=== PATIENT | female | born 1955 | race Caucasian/White ===

== ENCOUNTER 2018-06-19 09:58 | Outpatient (CLI) | payer BC, MEDICAID | END 2018-06-19 23:59 | disposition home or self-care (01) | LOC: RAD 09:58 | PROVIDERS: ATTEND Nurse Practitioner Family | DX: K80.20 Calculus of gallbladder without cholecystitis without obstruction (principal) | CPT/HCPCS: 76700 ==

== ENCOUNTER 2019-03-03 11:35 | Emergency (ER) | payer MEDICAID, OTHER ==
[~2019-03-03] VITALS: Ht 160 cm; Wt 86.4 kg
[~2019-03-03 11:35] MED LIST: ESOM40CA PO
[2019-03-03 12:24] LABS: BASOPHILS % (AUTO) 0.5 % (0-1); EOSINOPHILS # (AUTO) 0.1 X10'3 (0-0.9); EOSINOPHILS % (AUTO) 2.7 % (0-6); HEMOGLOBIN 14.2 g/dl (12.0-16.0); LYMPHOCYTES # (AUTO) 1.6 X10'3 (1.1-4.8); LYMPHOCYTES % (AUTO) 34.5 % (21-51); MEAN CORPUSCULAR HGB CONC 34.7 g/dL (33.0-36.5); MEAN CORPUSCULAR VOLUME 92.1 FL (78-98); MEAN PLATELET VOLUME 8.5 FL (7.4-10.4); MONOCYTES # (AUTO) 0.4 X10'3 (0-0.9); MONOCYTES % (AUTO) 7.9 % (2-12); NEUTROPHILS # (AUTO) 2.4 X10'3 (1.8-7.7); NEUTROPHILS % (AUTO) 54.4 % (42-75); PLATELET COUNT 257 X10'3 (140-440); RED BLOOD COUNT 4.45 X10'6 (4.20-5.60); WHITE BLOOD COUNT 4.5 X10'3 (4.5-11.0)
[2019-03-03 12:38] LABS: ALANINE AMINOTRANSFERASE 30 U/L (12-78); ALBUMIN 3.8 G/DL (3.4-5.0); ALBUMIN/GLOBULIN RATIO 1.2 (1.1-1.5); ALKALINE PHOSPHATASE 101 IU/L (46-116); ANION GAP 11 (8-16); ASPARTATE AMINO TRANSFERASE 36 U/L (10-37); BILIRUBIN,TOTAL 0.5 MG/DL (0.1-1.0); BLOOD UREA NITROGEN 11 MG/DL (7-18); BUN/CREATININE RATIO 12.2 (6.6-38.0); CALCIUM 9.3 MG/DL (8.5-10.1); CHLORIDE 105 MMOL/L (99-107); GLUCOSE 119 MG/DL (70-104); POTASSIUM 3.7 MMOL/L (3.5-5.1); SODIUM 141 MMOL/L (135-145); TOTAL CARBON DIOXIDE 25.3 MMOL/L (24-32); TOTAL PROTEIN 7.1 G/DL (6.4-8.2); eGFR 63 ML/MIN
[2019-03-03] MEDS ORDERED: sucralfate 1gm/10ml UD suspension PO ONE (12:45)
[2019-03-03 12:53] VITALS: BP 144/64
[2019-03-03 12:56] LABS: PARTIAL THROMBOPLASTIN TIME 31 SECONDS (22-32); PROTHROMBIN TIME 10.4 SECONDS (9.0-12.0)
[2019-03-03 13:02] LABS: CLARITY,URINE CLEAR (Clear); COLOR,URINE YELLOW (Yellow); GLUCOSE, URINE NEGATIVE (Neg); KETONES,URINE NEGATIVE (Neg); LEUKOCYTE ESTERASE ,URINE NEGATIVE (Neg); NITRITES, URINE NEGATIVE (Neg); OCCULT BLOOD,URINE NEGATIVE (Neg); PH,URINE 7.5 (4.8-8.0); PROTEIN,URINE NEGATIVE (Neg); URINE HCG NEGATIVE (NEG); UROBILINOGEN,URINE 0.2 E.U/dL (0.2-1.0)
[2019-03-03 13:03] LABS: UA COLLECTION TYPE CLN CATCH MIDSTREAM
[2019-03-03] MEDS ORDERED: LIDOcaine Viscous 15ml cup MM STA (13:32)
[2019-03-03] MEDS ORDERED: ketorolac tromethamine 15mg/ml inj. IV ONE (13:35)
[2019-03-03] MEDS ORDERED: mag hydrox/Alum hydrox/simeth 30ml oral suspension PO ONE (13:35)
== END 2019-03-03 14:35 | disposition home or self-care (01) ==
LOC: ER 11:36
DX: R10.13 Epigastric pain (principal); R07.89 Other chest pain; R06.02 Shortness of breath; Z98.890 Other specified postprocedural states; Z88.5 Allergy status to narcotic agent; Z79.899 Other long term (current) drug therapy
CPT/HCPCS: 36415; 71045; 80053; 81003; 81025; 84484; 85025; 85610; 85730; 93005; 96374; 99284; J1885

== ENCOUNTER 2019-03-03 20:34 | Inpatient (IN) | payer OTHER ==
[~2019-03-03] VITALS: Ht 160 cm; Wt 88.0 kg
[2019-03-03 21:28] LABS: ALANINE AMINOTRANSFERASE 379 U/L (12-78); ALBUMIN/GLOBULIN RATIO 1.3 (1.1-1.5); ALKALINE PHOSPHATASE 158 IU/L (46-116); ANION GAP 14 (8-16); ASPARTATE AMINO TRANSFERASE 441 U/L (10-37); BILIRUBIN,TOTAL 3.3 MG/DL (0.1-1.0); BLOOD UREA NITROGEN 10 MG/DL (7-18); BUN/CREATININE RATIO 10.6 (6.6-38.0); CALCIUM 9.4 MG/DL (8.5-10.1); CHLORIDE 106 MMOL/L (99-107); CREATININE 0.94 MG/DL (0.40-0.90); GLUCOSE 119 MG/DL (70-104); POTASSIUM 3.8 MMOL/L (3.5-5.1); SODIUM 141 MMOL/L (135-145); TOTAL CARBON DIOXIDE 21.3 MMOL/L (24-32); TOTAL PROTEIN 7.2 G/DL (6.4-8.2); eGFR 60 ML/MIN
[2019-03-03 21:39] LABS: BASOPHILS % (AUTO) 0.2 % (0-1); EOSINOPHILS # (AUTO) 0.1 X10'3 (0-0.9); EOSINOPHILS % (AUTO) 0.9 % (0-6); HEMATOCRIT 41.5 % (35.0-45.0); HEMOGLOBIN 14.5 g/dl (12.0-16.0); LYMPHOCYTES # (AUTO) 1.4 X10'3 (1.1-4.8); LYMPHOCYTES % (AUTO) 16.9 % (21-51); MEAN CORPUSCULAR HEMOGLOBIN 31.8 PG (27.0-31.0); MEAN CORPUSCULAR HGB CONC 35.1 g/dL (33.0-36.5); MEAN CORPUSCULAR VOLUME 90.8 FL (78-98); MONOCYTES # (AUTO) 0.8 X10'3 (0-0.9); MONOCYTES % (AUTO) 9.6 % (2-12); NEUTROPHILS # (AUTO) 5.9 X10'3 (1.8-7.7); NEUTROPHILS % (AUTO) 72.4 % (42-75); PLATELET COUNT 273 X10'3 (140-440); RED BLOOD COUNT 4.56 X10'6 (4.20-5.60); RED CELL DISTRIBUTION WIDTH 13.1 % (11.5-14.5); WHITE BLOOD COUNT 8.2 X10'3 (4.5-11.0)
[2019-03-03 22:16] LABS: CLARITY,URINE CLEAR (Clear); COLOR,URINE YELLOW (Yellow); GLUCOSE, URINE NEGATIVE (Neg); KETONES,URINE NEGATIVE (Neg); LEUKOCYTE ESTERASE ,URINE NEGATIVE (Neg); NITRITES, URINE NEGATIVE (Neg); OCCULT BLOOD,URINE NEGATIVE (Neg); PH,URINE >=9.0 (4.8-8.0); PROTEIN,URINE NEGATIVE (Neg)
[2019-03-03 22:22] LABS: URINE HCG NEGATIVE (NEG)
[2019-03-03 22:25] LABS: UA COLLECTION TYPE CLN CATCH MIDSTREAM
[2019-03-03 22:26] LABS: PROTHROMBIN TIME 10.3 SECONDS (9.0-12.0)
[2019-03-03] MEDS ORDERED: ondansetron/PF 4mg/2ml inj IV ONE (22:45)
[2019-03-03] MEDS ORDERED: morphine 4 MG/ML inj SYRINge IV SCH (22:45)
[2019-03-03] MEDS ORDERED: morphine 4 MG/ML inj SYRINge IV ONE (22:45)
[2019-03-03] MEDS ORDERED: fentaNYL/PF 50MCG/1 ML 2ML syringe IV ONE (22:55)
[2019-03-04] VITALS (15 sets, daily range): BP systolic 114–148; BP diastolic 66–98
[2019-03-04] MEDS ORDERED: metoclopramide 5 mg/ml inj IV PRN (00:40)
[2019-03-04] MEDS ORDERED: mag hydrox/Alum hydrox/simeth 30ml oral suspension PO PRN (00:40)
[2019-03-04] MEDS ORDERED: HYDROcodone/acetaminophen 10/325mg tab PO PRN (00:40)
[2019-03-04] MEDS ORDERED: magnesium hydroxide 30ml (MOM) UD suspension PO PRN (00:40)
[2019-03-04] MEDS ORDERED: HYDROmorphone 1 mg/ml syringe IV PRN (00:40)
[2019-03-04] MEDS ORDERED: acetaminophen 325mg tablet PO PRN ×2 (00:40)
[2019-03-04] MEDS ORDERED: HYDROcodone/acetaminophen 5mg/325mg tablet PO PRN (00:40)
[2019-03-04 00:45] LABS: LIPASE 362 U/L (73-393)
[2019-03-04] MEDS: normal saline 1000ml 1,000 ML IV SCH ×3 (00:54→21:28)
[2019-03-04] MEDS ORDERED: piperacillin/tazo 4.5gm/100ml 100 ML IV ONE (01:00)
--- NOTE | 2019-03-04 07:43 | NUR ---
REPORT ATTEMPTED, DERECK CHANDLER TO RETURN CALL
[2019-03-04] MEDS ORDERED: piperacillin/tazo 4.5gm/100ml 100 ML IV SCH (08:00)
--- NOTE | 2019-03-04 08:07 | NUR ---
Report received from ED RN, Chiquis.
--- NOTE | 2019-03-04 08:10 | NUR ---
Pt arrived to room 350B from ED.
[2019-03-04] MEDS: piperacillin/tazo 4.5gm/100ml 100 ML IV SCH ×2 (09:34→16:12)
[2019-03-04 10:07] LABS: ALANINE AMINOTRANSFERASE 697 U/L (12-78); ALBUMIN 3.3 G/DL (3.4-5.0); ALKALINE PHOSPHATASE 181 IU/L (46-116); ANION GAP 7 (8-16); ASPARTATE AMINO TRANSFERASE 591 U/L (10-37); BILIRUBIN,TOTAL 4.8 MG/DL (0.1-1.0); BLOOD UREA NITROGEN 10 MG/DL (7-18); BUN/CREATININE RATIO 10.6 (6.6-38.0); CALCIUM 8.9 MG/DL (8.5-10.1); CHLORIDE 109 MMOL/L (99-107); CREATININE 0.94 MG/DL (0.40-0.90); GLUCOSE 94 MG/DL (70-104); SODIUM 142 MMOL/L (135-145); TOTAL CARBON DIOXIDE 26.1 MMOL/L (24-32); eGFR 60 ML/MIN
[2019-03-04 10:10] LABS: ALBUMIN/GLOBULIN RATIO 1.1 (1.1-1.5); POTASSIUM 3.9 MMOL/L (3.5-5.1); TOTAL PROTEIN 6.3 G/DL (6.4-8.2)
[2019-03-04] MEDS: HYDROmorphone inj. 0.5 MG/0.5 ML DISP.SYRIN IV PRN (11:28)
[2019-03-04] MEDS: ondansetron/PF 4mg/2ml inj IV PRN (13:53)
[2019-03-04] MEDS ORDERED: MIDAZolam 5mg/5ml vial ONE (16:23)
[2019-03-04] MEDS ORDERED: fentaNYL/PF 50MCG/1 ML 2ML syringe ONE (16:23)
[2019-03-04] MEDS ORDERED: LIDOcaine Viscous 15ml cup ONE (16:23)
[2019-03-04] MEDS ORDERED: meperidine/PF 100mg/ml syringe ONE (16:23)
[2019-03-04] MEDS ORDERED: diphenhydrAMINE 50 mg/ml inj ONE (16:24)
[2019-03-04] MEDS ORDERED: iohexol 300 MG/1 ML 50ml polymer ONE (16:25)
[2019-03-04] MEDS ORDERED: glucagon, human recombinant 1mg kit ONE (16:25)
--- NOTE | 2019-03-04 16:30 | NUR ---
Pt off the floor to GI lab for ERCP
--- NOTE | 2019-03-04 18:35 | NUR ---
Problems reprioritized. Patient report given, questions answered & plan of care reviewed with Cristina Evans RN.
--- NOTE | 2019-03-04 18:38 | NUR ---
Patient in room BI 350. I have received report from ARON HARDEN and had the opportunity to ask questions and assume patient care.
[2019-03-04] MEDS: lactobacillus rhamnosus 10,000 MMU CELLS/CAPSULE PO SCH (20:00)
[2019-03-04] MEDS ORDERED: temazepam 15mg capsule PO PRN (21:00)
[2019-03-05] VITALS (20 sets, daily range): BP systolic 106–144; BP diastolic 50–72
[2019-03-05] MEDS: piperacillin/tazo 4.5gm/100ml 100 ML IV SCH ×3 (01:04→15:35)
[2019-03-05] MEDS: ondansetron/PF 4mg/2ml inj IV PRN (05:07)
[2019-03-05] MEDS: HYDROmorphone inj. 0.5 MG/0.5 ML DISP.SYRIN IV PRN ×2 (05:11→15:35)
[2019-03-05 05:12] LABS: BASOPHILS % (AUTO) 0.4 % (0-1); EOSINOPHILS # (AUTO) 0.1 X10'3 (0-0.9); EOSINOPHILS % (AUTO) 1.8 % (0-6); HEMOGLOBIN 12.3 g/dl (12.0-16.0); LYMPHOCYTES # (AUTO) 1.1 X10'3 (1.1-4.8); MEAN CORPUSCULAR HGB CONC 34.2 g/dL (33.0-36.5); MEAN CORPUSCULAR VOLUME 93.5 FL (78-98); MEAN PLATELET VOLUME 8.9 FL (7.4-10.4); MONOCYTES # (AUTO) 0.6 X10'3 (0-0.9); MONOCYTES % (AUTO) 11.5 % (2-12); NEUTROPHILS # (AUTO) 3.3 X10'3 (1.8-7.7); NEUTROPHILS % (AUTO) 64.3 % (42-75); PLATELET COUNT 202 X10'3 (140-440); RED BLOOD COUNT 3.85 X10'6 (4.20-5.60); RED CELL DISTRIBUTION WIDTH 13.4 % (11.5-14.5); WHITE BLOOD COUNT 5.2 X10'3 (4.5-11.0)
[2019-03-05 05:25] LABS: ALANINE AMINOTRANSFERASE 570 U/L (12-78); ALBUMIN 2.8 G/DL (3.4-5.0); ALKALINE PHOSPHATASE 192 IU/L (46-116); ANION GAP 7 (8-16); ASPARTATE AMINO TRANSFERASE 294 U/L (10-37); BILIRUBIN,TOTAL 4.4 MG/DL (0.1-1.0); BLOOD UREA NITROGEN 9 MG/DL (7-18); CALCIUM 8.6 MG/DL (8.5-10.1); CHLORIDE 111 MMOL/L (99-107); GLUCOSE 82 MG/DL (70-104); POTASSIUM 3.7 MMOL/L (3.5-5.1); SODIUM 143 MMOL/L (135-145); TOTAL CARBON DIOXIDE 25.2 MMOL/L (24-32); eGFR 63 ML/MIN
[2019-03-05 05:28] LABS: TOTAL PROTEIN 5.7 G/DL (6.4-8.2)
--- NOTE | 2019-03-05 06:30 | NUR ---
Problems reprioritized. Patient report given, questions answered & plan of care reviewed with XAVI HARDEN.
[2019-03-05] MEDS: lactobacillus rhamnosus 10,000 MMU CELLS/CAPSULE PO SCH ×2 (06:40→19:51)
--- NOTE | 2019-03-05 06:50 | NUR ---
Patient in room BI 350. I have received report from Jasmin HARDEN and had the opportunity to ask questions and assume patient care.
[2019-03-05] MEDS: normal saline 1000ml 1,000 ML IV SCH ×2 (07:54→15:35)
--- NOTE | 2019-03-05 11:58 | NUR ---
Patient report given to recovery room nurse Dyana HARDEN.
--- NOTE | 2019-03-05 12:10 | NUR ---
Patient taken down to OR. Family at bedside.
[2019-03-05] MEDS ORDERED: BUPIVAcaine/PF 2.5mg/ml (0.25%) 10ml vial ONE (12:13)
[2019-03-05] MEDS ORDERED: ceFAZolin 1000mg inj ONE (12:13)
[2019-03-05] MEDS ORDERED: sevoflurane 250ml liquid IH ONE (12:44)
[2019-03-05] MEDS ORDERED: labetalol 20mg/4ml (5mg/ml) syringe IV ONE (12:44)
[2019-03-05] MEDS ORDERED: fentaNYL/PF 50MCG/1 ML 2ML syringe ONE (12:49)
[2019-03-05] MEDS ORDERED: midazolam 2 mg/2 ml injection ONE (12:50)
[2019-03-05] MEDS ORDERED: sugammadex 200mg/2ml injection IV ONE (13:04)
[2019-03-05] MEDS ORDERED: cefotetan 2gm/isosm dext IVPB 50 ML IV ONE (13:04)
[2019-03-05] MEDS ORDERED: ringers solution, lacted 1,000 ML IV SCH (13:24)
[2019-03-05] MEDS ORDERED: meperidine/PF 25mg/ml syringe IV PRN ×2 (13:25)
[2019-03-05] MEDS ORDERED: ondansetron/PF 4mg/2ml inj IV PRN (13:25)
[2019-03-05] MEDS ORDERED: HYDROmorphone inj. 0.5 MG/0.5 ML DISP.SYRIN IV PRN ×2 (13:25)
[2019-03-05] MEDS ORDERED: propofol inj 20 ML IV ONE (13:30)
[2019-03-05] MEDS ORDERED: LIDOcaine 2% (20mg/ml) 5ml vial ONE (13:30)
[2019-03-05] MEDS ORDERED: rocuronium 10mg/ml inj IV ONE (13:30)
[2019-03-05] MEDS ORDERED: dexamethasone sod phosphate 4mg/ml inj. ONE (13:31)
[2019-03-05] MEDS ORDERED: ondansetron/PF 4mg/2ml inj ONE (13:31)
[2019-03-05] MEDS ORDERED: meperidine/PF 50mg/ml syringe ONE (13:41)
--- NOTE | 2019-03-05 13:50 | NUR ---
Received from OR via bed, accompanied by Anesthesiologist. Report received. Initial physical assessment done and recorded.
--- NOTE | 2019-03-05 15:00 | NUR ---
Discharge criteria met, report to receiving floor. Transferred to room in stable condition.
--- NOTE | 2019-03-05 15:01 | NUR ---
Received report from recovery room nurse Alina HARDEN. Awaiting arrival back to room 350B.
--- NOTE | 2019-03-05 15:10 | NUR ---
Patient arrived back to room 350B. VSS. Abdomen soft, lap sites CDI. Family at bedside.
--- NOTE | 2019-03-05 18:31 | NUR ---
Problems reprioritized. Patient report given, questions answered & plan of care reviewed with Cony HARDEN.
--- NOTE | 2019-03-05 18:34 | NUR ---
Student documentation: I have reviewed and agree with all interventions, assessments performed and documented by Aj Student Nurse. Student Medication Administration: For this medication-pass time frame, all medication were reviewed, dispensed, administered and documented per hospital policy by Aj Peñaloza Nurse.
[2019-03-06] VITALS: BP 130/56
[2019-03-06] MEDS: normal saline 1000ml 1,000 ML IV SCH ×2 (00:28→11:00)
[2019-03-06] MEDS: piperacillin/tazo 4.5gm/100ml 100 ML IV SCH ×2 (00:28→07:49)
[2019-03-06 04:00] VITALS: BP 123/60
[2019-03-06 05:03] LABS: BASOPHILS % (AUTO) 0 % (0-1); EOSINOPHILS % (AUTO) 0 % (0-6); HEMATOCRIT 34.6 % (35.0-45.0); LYMPHOCYTES # (AUTO) 0.7 X10'3 (1.1-4.8); LYMPHOCYTES % (AUTO) 6.2 % (21-51); MEAN CORPUSCULAR HEMOGLOBIN 31.8 PG (27.0-31.0); MEAN CORPUSCULAR HGB CONC 34.7 g/dL (33.0-36.5); MEAN CORPUSCULAR VOLUME 91.8 FL (78-98); MEAN PLATELET VOLUME 8.7 FL (7.4-10.4); MONOCYTES # (AUTO) 0.9 X10'3 (0-0.9); MONOCYTES % (AUTO) 7.8 % (2-12); NEUTROPHILS # (AUTO) 9.6 X10'3 (1.8-7.7); PLATELET COUNT 209 X10'3 (140-440); RED BLOOD COUNT 3.77 X10'6 (4.20-5.60); RED CELL DISTRIBUTION WIDTH 13.6 % (11.5-14.5); WHITE BLOOD COUNT 11.1 X10'3 (4.5-11.0)
[2019-03-06 05:13] LABS: ALANINE AMINOTRANSFERASE 473 U/L (12-78); ALBUMIN 2.8 G/DL (3.4-5.0); ALKALINE PHOSPHATASE 177 IU/L (46-116); ANION GAP 9 (8-16); ASPARTATE AMINO TRANSFERASE 187 U/L (10-37); BILIRUBIN,TOTAL 1.4 MG/DL (0.1-1.0); BLOOD UREA NITROGEN 8 MG/DL (7-18); BUN/CREATININE RATIO 7.9 (6.6-38.0); CALCIUM 8.9 MG/DL (8.5-10.1); CHLORIDE 107 MMOL/L (99-107); CREATININE 1.01 MG/DL (0.40-0.90); GLUCOSE 117 MG/DL (70-104); POTASSIUM 3.8 MMOL/L (3.5-5.1); SODIUM 142 MMOL/L (135-145); TOTAL CARBON DIOXIDE 26.1 MMOL/L (24-32); TOTAL PROTEIN 5.7 G/DL (6.4-8.2); eGFR 56 ML/MIN
--- NOTE | 2019-03-06 07:04 | NUR ---
Problems reprioritized. Patient report given, questions answered & plan of care reviewed with Lyssa HARDEN.
--- NOTE | 2019-03-06 07:09 | NUR ---
Patient in room BI 350. I have received report from Cony HARDEN and had the opportunity to ask questions and assume patient care.
[2019-03-06 07:44] VITALS: BP 128/58
[2019-03-06] MEDS: lactobacillus rhamnosus 10,000 MMU CELLS/CAPSULE PO SCH (07:49)
[2019-03-06] MEDS ORDERED: ibuprofen 200mg tablet PO PRN (08:05)
[2019-03-06 11:08] VITALS: BP 118/63
[2019-03-06] MEDS ORDERED: IBUP-1984 PO (13:49)
--- NOTE | 2019-03-06 15:20 | NUR ---
Patient discharged with all belongings. Family to take pt home. IV taken out. [facility].
== END 2019-03-06 15:17 | disposition home or self-care (01) | DRG 418 ==
LOC: ER 20:34 → EDBEDREQSVC 03-04 07:21 → SUR 3N 03-04 08:37 → CMPBEDREQ 03-04 19:44
PROVIDERS: ADMIT Hospitalist; ATTEND Internal Medicine
PROC: 0F798DZ Dilation of Common Bile Duct with Intraluminal Device, Via Natural or Artificial Opening Endoscopic (ICD-10-PCS; 2019-03-04)
PROC: 0FT44ZZ Resection of Gallbladder, Percutaneous Endoscopic Approach (ICD-10-PCS; principal; 2019-03-05 12:44)
DX: K80.62 Calculus of gallbladder and bile duct with acute cholecystitis without obstruction (principal); R17 Unspecified jaundice; K21.9 Gastro-esophageal reflux disease without esophagitis; R74.0 Nonspecific elevation of levels of transaminase and lactic acid dehydrogenase [LDH]; G89.29 Other chronic pain; M54.5 Low back pain; Z88.5 Allergy status to narcotic agent
CPT/HCPCS: 43274; 96365; 96375; 99285; Z7506; 36415; 74176; 80053; 81003; 81025; 83690; 85025; 85610; 87070; 99152; 99153; A4620; A7000; C9399; G0378; J0690; J1100; J1170; J1200; J1610; J2001; J2175; J2250; J2405; J2543; J2704; J3010; J3490; J7030; J7120; Q9967

== ENCOUNTER 2024-03-12 10:37 | Inpatient (IN) | payer MEDICARE, MEDICAID ==
[~2024-03-12] VITALS: Ht 157.5 cm; Wt 101.0 kg
[2024-03-12 11:14] LABS: BASOPHILS % (AUTO) 0.6 % (0-1); EOSINOPHILS # (AUTO) 0.1 X10'3 (0-0.9); EOSINOPHILS % (AUTO) 2.5 % (0-6); HEMATOCRIT 41.4 % (35.0-45.0); HEMOGLOBIN 13.8 g/dl (12.0-16.0); LYMPHOCYTES # (AUTO) 1.6 X10'3 (1.1-4.8); LYMPHOCYTES % (AUTO) 28.8 % (21-51); MEAN CORPUSCULAR HEMOGLOBIN 31.1 PG (27.0-31.0); MEAN CORPUSCULAR HGB CONC 33.5 g/dL (33.0-36.5); MEAN CORPUSCULAR VOLUME 92.8 FL (78-98); MONOCYTES # (AUTO) 0.6 X10'3 (0-0.9); MONOCYTES % (AUTO) 10.3 % (2-12); NEUTROPHILS # (AUTO) 3.2 X10'3 (1.8-7.7); NEUTROPHILS % (AUTO) 57.8 % (42-75); PLATELET COUNT 319 X10'3 (140-440); RED BLOOD COUNT 4.46 X10'6 (4.20-5.60); RED CELL DISTRIBUTION WIDTH 13.8 % (11.5-14.5); WHITE BLOOD COUNT 5.5 X10'3 (4.5-11.0)
[2024-03-12 11:28] LABS: ALBUMIN 3.3 G/DL (3.4-5.0); ANION GAP 8 (8-16); BLOOD UREA NITROGEN 12 MG/DL (7-18); BUN/CREATININE RATIO 12.9 (10.0-20.0); CALCIUM 8.4 MG/DL (8.5-10.1); CHLORIDE 106 MMOL/L (99-107); CREATININE 0.93 MG/DL (0.40-0.90); GLUCOSE 116 MG/DL (70-104); SODIUM 141 MMOL/L (135-145); TOTAL CARBON DIOXIDE 26.9 MMOL/L (24-32); eCRCL 46 ML/MIN; eGFR 60 ML/MIN
[2024-03-12 11:33] LABS: PRO BRAIN NATRIURETIC PEPTIDE 284 PG/ML (0-125)
[2024-03-12 11:47] LABS: MAGNESIUM 1.9 MG/DL (1.5-2.4)
[2024-03-12] MEDS ORDERED: DABI75CA8 PO ×2 (11:57)
[2024-03-12] MEDS ORDERED: IRBE75TA15 PO (11:57)
[2024-03-12] MEDS ORDERED: CHOL200080 PO (11:57)
[2024-03-12] MEDS ORDERED: LORA10TA7 PO (11:57)
[2024-03-12] MEDS ORDERED: ESCI-8 PO (11:57)
[2024-03-12] MEDS ORDERED: diphenhydrAMINE 50 mg/ml inj IV PRN (13:15)
[2024-03-12] MEDS ORDERED: mag hydrox/Alum hydrox/simeth 30ml oral suspension PO PRN (13:15)
[2024-03-12] MEDS ORDERED: diphenhydrAMINE 25mg capsule PO PRN (13:15)
[2024-03-12] MEDS ORDERED: acetaminophen 325mg tablet PO PRN (13:15)
[2024-03-12] MEDS ORDERED: magnesium hydroxide 30ml (MOM) UD suspension PO PRN (13:15)
[2024-03-12] MEDS ORDERED: acetaminophen 650mg rectal suppository RC PRN (13:15)
[2024-03-12] MEDS ORDERED: ondansetron/PF 4mg/2ml inj IV PRN (13:15)
[2024-03-12] MEDS ORDERED: ondansetron 4mg rapidly disintigrating tab PO PRN (13:15)
[2024-03-12] MEDS ORDERED: bisacodyl 10mg suppository rectal RC PRN (13:15)
[2024-03-12] MEDS ORDERED: heparin 25,000 UNIT/250ml bag 250 ML IV PRN (13:25)
[2024-03-12] MEDS ORDERED: heparin 10,000 units/1 ML INJ IV PRN (13:25)
[2024-03-12] MEDS ORDERED: heparin 10,000 units/1 ML INJ IV ONE (13:25)
[2024-03-12] MEDS: normal saline 1000ml 1,000 ML IV SCH (13:57)
[2024-03-12 14:22] LABS: BASOPHILS % (AUTO) 0.4 % (0-1); EOSINOPHILS # (AUTO) 0.2 X10'3 (0-0.9); EOSINOPHILS % (AUTO) 2.4 % (0-6); HEMATOCRIT 41.8 % (35.0-45.0); HEMOGLOBIN 14.5 g/dl (12.0-16.0); LYMPHOCYTES # (AUTO) 1.9 X10'3 (1.1-4.8); LYMPHOCYTES % (AUTO) 27.5 % (21-51); MEAN CORPUSCULAR HEMOGLOBIN 32.3 PG (27.0-31.0); MEAN CORPUSCULAR HGB CONC 34.7 g/dL (33.0-36.5); MONOCYTES # (AUTO) 0.7 X10'3 (0-0.9); MONOCYTES % (AUTO) 9.9 % (2-12); NEUTROPHILS # (AUTO) 4.2 X10'3 (1.8-7.7); NEUTROPHILS % (AUTO) 59.8 % (42-75); PLATELET COUNT 320 X10'3 (140-440); RED BLOOD COUNT 4.49 X10'6 (4.20-5.60); RED CELL DISTRIBUTION WIDTH 13.8 % (11.5-14.5)
[2024-03-12 14:44] LABS: HEMOGLOBIN A1C 5.3 % (4.5-6.2); THYROID STIMULATING HORMONE 1.12 ulU/ml (0.34-4.50)
[2024-03-12 15:00] LABS: APTT 45 SECONDS (22-32); INR 1.1 INR; PROTHROMBIN TIME 11.9 SECONDS (9.0-12.0)
[2024-03-12 15:04] LABS: D-DIMER < 0.19 MG/L FEU (0-0.50)
[2024-03-12 16:45] VITALS: BP 195/93; PULSE 62; RESP 19; TEMP 98.1; O2SAT 100
[2024-03-12 18:00] VITALS: BP 191/78; PULSE 58; RESP 16; TEMP 97.7; O2SAT 99
[2024-03-12 20:00] VITALS: RESP 16; O2SAT 99
[2024-03-12] MEDS: docusate sod 100mg capsule PO SCH (20:00)
[2024-03-12 20:29] VITALS: RESP 16; O2SAT 98
[2024-03-12] MEDS ORDERED: temazepam 15mg capsule PO PRN (21:00)
[2024-03-12] MEDS: losartan 25mg tablet PO SCH (21:03)
[2024-03-12] MEDS: dabigatran 150mg capsule PO SCH (21:03)
[2024-03-12] MEDS: ESCITALOPRAM 10 mg tablet 10 MG TABLET PO SCH (21:04)
[2024-03-12 22:00] VITALS: BP 178/64; PULSE 66; RESP 20; TEMP 97.6; O2SAT 97
[2024-03-13 02:00] VITALS: BP 165/70; PULSE 61; RESP 15; TEMP 99.4; O2SAT 98
[2024-03-13 07:00] VITALS: BP 141/77; PULSE 69; RESP 15; TEMP 98.5; O2SAT 96
[2024-03-13 07:49] LABS: BASOPHILS % (AUTO) 0.5 % (0-1); EOSINOPHILS # (AUTO) 0.1 X10'3 (0-0.9); EOSINOPHILS % (AUTO) 1.6 % (0-6); HEMATOCRIT 41.1 % (35.0-45.0); HEMOGLOBIN 13.8 g/dl (12.0-16.0); LYMPHOCYTES # (AUTO) 1.9 X10'3 (1.1-4.8); LYMPHOCYTES % (AUTO) 25.1 % (21-51); MEAN CORPUSCULAR HEMOGLOBIN 31.1 PG (27.0-31.0); MEAN CORPUSCULAR HGB CONC 33.6 g/dL (33.0-36.5); MEAN CORPUSCULAR VOLUME 92.8 FL (78-98); MEAN PLATELET VOLUME 8.4 FL (7.4-10.4); MONOCYTES # (AUTO) 0.7 X10'3 (0-0.9); MONOCYTES % (AUTO) 9.6 % (2-12); NEUTROPHILS # (AUTO) 4.8 X10'3 (1.8-7.7); NEUTROPHILS % (AUTO) 63.2 % (42-75); PLATELET COUNT 309 X10'3 (140-440); RED BLOOD COUNT 4.42 X10'6 (4.20-5.60); RED CELL DISTRIBUTION WIDTH 13.5 % (11.5-14.5); WHITE BLOOD COUNT 7.5 X10'3 (4.5-11.0)
[2024-03-13] MEDS ORDERED: ESCITALOPRAM 10 mg tablet 10 MG TABLET PO SCH (08:00)
[2024-03-13 08:04] LABS: ANION GAP 3 (8-16); BILIRUBIN,TOTAL 0.6 MG/DL (0.1-1.0); BLOOD UREA NITROGEN 11 MG/DL (7-18); BUN/CREATININE RATIO 12.8 (10.0-20.0); CALCIUM 8.8 MG/DL (8.5-10.1); CHLORIDE 106 MMOL/L (99-107); CREATININE 0.86 MG/DL (0.40-0.90); GLUCOSE 92 MG/DL (70-104); SODIUM 140 MMOL/L (135-145); TOTAL CARBON DIOXIDE 31.1 MMOL/L (24-32); eCRCL 50 ML/MIN; eGFR 66 ML/MIN
[2024-03-13 08:05] LABS: ALANINE AMINOTRANSFERASE 16 U/L (12-78); ALBUMIN 3.3 G/DL (3.4-5.0); ALBUMIN/GLOBULIN RATIO 0.9 (1.1-1.5); ALKALINE PHOSPHATASE 110 IU/L (46-116); ASPARTATE AMINO TRANSFERASE 13 U/L (10-37); CHOL/HDL RATIO 2.7 (0.00-4.99); CHOLESTEROL 159 MG/DL (0-200); HDL CHOLESTEROL 58 MG/DL (35-60); LDL CHOLESTEROL 92 MG/DL (50-100); TOTAL PROTEIN 7.1 G/DL (6.4-8.2); TRIGLYCERIDES 49 MG/DL (20-135)
[2024-03-13] MEDS: cholecalciferol (vitamin D3) 1,000 unit (25mcg) tablet PO SCH (08:28)
[2024-03-13] MEDS: aspirin 81mg, enteric-coated 1 TAB TABLET.DR PO SCH (08:29)
[2024-03-13] MEDS: atorvastatin 20mg tablet PO SCH (08:29)
[2024-03-13] MEDS: loratadine 10mg tablet PO SCH (08:29)
[2024-03-13] MEDS: pantoprazole 40mg Tablet.DR PO SCH (08:30)
[2024-03-13] MEDS: acetaminophen 325mg tablet PO PRN (08:37)
[2024-03-13 11:00] VITALS: BP 155/81; PULSE 56; RESP 14; TEMP 97.9; O2SAT 96
[2024-03-13 14:55] VITALS: BP 137/83; PULSE 67; RESP 24; TEMP 98.1; O2SAT 97
== END 2024-03-13 15:55 | disposition home or self-care (01) | DRG 309 ==
LOC: ER 10:37 → ED HOLD 13:22 → PCU 3S 16:39
PROVIDERS: ADMIT Family Medicine; ATTEND Internal Medicine
DX: I48.0 Paroxysmal atrial fibrillation (principal); Z68.41 Body mass index [BMI] 40.0-44.9, adult; G89.4 Chronic pain syndrome; E66.01 Morbid (severe) obesity due to excess calories; K21.9 Gastro-esophageal reflux disease without esophagitis; I12.9 Hypertensive chronic kidney disease with stage 1 through stage 4 chronic kidney disease, or unspecified chronic kidney disease; K76.0 Fatty (change of) liver, not elsewhere classified; N18.9 Chronic kidney disease, unspecified; Z90.49 Acquired absence of other specified parts of digestive tract; Z79.899 Other long term (current) drug therapy; Z88.5 Allergy status to narcotic agent; Z79.02 Long term (current) use of antithrombotics/antiplatelets
CPT/HCPCS: 36415; 71045; 80048; 80053; 80061; 83036; 83690; 83735; 83880; 84100; 84443; 84484; 85025; 85379; 85610; 85730; 87081; 93005; 93306; 99291; G0378; J7030

== ENCOUNTER 2024-04-09 10:41 | Outpatient (CLI) | payer MEDICARE, MEDICAID ==
[~2024-04-09 10:41] MED LIST changes: +CHOL200080 PO; +DABI75CA8 PO; +ESCI-8 PO; -ESOM40CA PO; +IRBE75TA15 PO; +LORA10TA7 PO
== END 2024-04-09 23:59 | disposition home or self-care (01) ==
LOC: RAD 10:41
PROVIDERS: ATTEND Nurse Practitioner Family
DX: M48.02 Spinal stenosis, cervical region (principal); G89.29 Other chronic pain; M54.2 Cervicalgia
CPT/HCPCS: 72050

== ENCOUNTER 2025-08-02 13:04 | Emergency (ER) | payer MEDICARE, MEDICAID ==
[~2025-08-02] VITALS: Ht 157.5 cm; Wt 124.6 kg
[2025-08-02 13:19] VITALS: BP 151/89; PULSE 65; RESP 18; TEMP 97.9; O2SAT 98
--- NOTE | 2025-08-02 13:59 | RADIOLOGY REPORT ---
EXAM: DI KNEE, COMP 4 VW MIN INDICATION: KNEE PAIN TECHNIQUE: 4 views of the left knee COMPARISON: None FINDINGS/IMPRESSION: No radiographic evidence of an acute osseous abnormality. There is no acute fracture, osseous malalignment, or aggressive focal osseous lesion. [id number] medial weight-bearing compartment joint space loss with tricompartmental osteoarthrosis. Quadriceps insertional enthesophyte. No knee joint effusion.
--- NOTE | 2025-08-02 14:48 | Physician Documentation ---
History of Present Illness ~ Chief Complaint: Knee Pain Stated Complaint: L KNEE PAIN Time Seen by MD: 14:05 Primary Medical Doctor: BEAU ZAVALA This is a 61-year-old female who reports to the emergency department for evaluation of left-sided knee pain times 2-1/2 days. Patient denies any known injury but reports that she may have strained it walking up hill. Patient reports is waking her up at night for the last couple of nights and she assumes it was arthritis but this pain feels slightly different as it hurts in the medial aspect of the knee. For seeking ibuprofen with some relief. Tetanus witin 5 years: No Medication Reconciliation Allergies: Coded Allergies: codeine (Verified Allergy, Unknown, 08/02/25) morphine (Verified Allergy, Unknown, 08/02/25) Scheduled Cholecalciferol (Vitamin D3) (Vitamin D3), 1 CAP PO DAILY, (Reported) Dabigatran Etexilate Mesylate (Dabigatran Etexilate), 2 CAP PO BID, (Reported) Escitalopram Oxalate (Escitalopram Oxalate), 1 TAB PO DAILY, (Reported) Irbesartan (Irbesartan), 1 TAB PO HS, (Reported) Lidocaine (Lidoderm), 1 PATCH TOP DAILY Loratadine (Loratadine), 1 TAB PO DAILY, (Reported) Past Medical History Past Medical History: Atrial Fibrillation, Hypertension Past Surgical History: Alcohol Use: Rarely Drug Use: none Lives with: Spouse Lives In: Home Review of Systems ROS As stated above in the HPI, otherwise all systems are reviewed and negative. Physical Exam Vital Signs: Temperature: 97.9, Source: Oral, Heart Rate: 65, Respiratory Rate: 18, BP: 151/89, Pulse Oximetry: 98, Weight: 124.600 Oxygen Flow Rate: 0 Physical Exam VITALS: Reviewed and as above. GENERAL: Alert, no apparent distress. HEENT: Normocephalic, atraumatic, PERRL, EOMI, dry mucosa, no erythema RESPIRATORY: Lungs clear, normal breath sounds, no respiratory distress. CHEST: No accessory muscle use, no retractions CV: Regular rate, rhythm, no edema, no murmur, No: JVD GI: Soft, non-tender, bowels sounds present, no rebound, guarding, or rigidity BACK: No CVA tenderness, or swelling MUSCULOSKELETAL No deformities, no edema, examination painful range of motion slight positive varus valgus in the left knee. SKIN: Warm and dry, no rash NEURO: Oriented x4, No motor or sensory deficit PSYCH: Normal mood and affect, no agitation Progress Results/Orders Results/Orders Vital Signs 08/02/25 13:19 Temp 97.9 Pulse 65 Resp 18 B/P (MAP) 151/89 Pulse Ox 98 O2 Flow Rate 0 Medical Decision Making Findings Patient presents with this knee many pain. Given history, exam and workup patient likely has arthritis possible MCL strain/sprain. I have low suspicion for fracture, dislocation, significant ligamentous injury, septic arthritis, gout flare, new autoimmune arthropathy, or gonococcal arthropathy. Patient was placed in an Gomze wrap, ambulation was evaluated for safety. We will prefer to not use crutches at this time based on examination like that is a reasonable plan. Patient will follow up with her primary care provider early next week. She will return to the emergency department with any worsening or recurrent symptoms or any additional concerning symptoms that we discussed here today i.e. increased swelling inability to bend the knee redness fevers or any other concerning symptoms. General Diff Dx:Considerations: Include: Abrasion, Contusion, Fracture, Hematoma, Laceration, Malunion, Neurovascular injury, Open fracture, Sprain, Ulcer, Other Knee Diff Dx:Considerations: Include: Abrasion, Arthritis, Contusion, DJD, Fracture-femur, Fracture-fibula, Fracture-patella, Fracture-tibia, Gout, Hematoma, Laceration, Meniscus injury, Neurovascular injury, Open fracture, Rheumatoid arthritis, Septic, Sprain, Sprain-MCL, Sprain-LCL, Sprain-ACL, Sprain-PCL, Other Departure Disposition: 01 HOME / SELF CARE / HOMELESS Impression: Primary Impression: Knee pain Additional Impressions: Sprain of knee Arthritis Condition: Stable Discharge Instructions: Arthritis, Acute Knee Pain, Adult Additional Instructions: Patient presents with this knee many pain. Given history, exam and workup patient likely has arthritis possible MCL strain/sprain. I have low suspicion for fracture, dislocation, significant ligamentous injury, septic arthritis, gout flare, new autoimmune arthropathy, or gonococcal arthropathy. Patient was placed in an Gomez wrap, ambulation was evaluated for safety. We will prefer to not use crutches at this time based on examination like that is a reasonable plan. Patient will follow up with her primary care provider early next week. She will return to the emergency department with any worsening or recurrent symptoms or any additional concerning symptoms that we discussed here today i.e. increased swelling inability to bend the knee redness fevers or any other concerning symptoms. You were able to use Tylenol and ibuprofen as needed for discomfort. You can take up to 1000 mg of Tylenol every 6 hours and 600 mg of ibuprofen every 6 hours. Please restroom any elevated as tolerated use ice and heat as needed to alleviate swelling and discomfort. Referrals: NO PRIMARY CARE PROVIDER (PCP) Prescriptions Lidocaine (Lidoderm) 5 % Adh..patch 1 PATCH TOP DAILY for 30 Days, #10 PATCH 0 Refills may wear up to 12 hours Prov: SYD SHERMAN 08/02/25 Lidocaine (Lidoderm) 5 % Adh..patch 1 PATCH TOP DAILY for 30 Days, #10 PATCH 0 Refills may wear up to 12 hours Prov: SYD SHERMAN 08/02/25 Education Educated: Patient Educated regarding: diagnosis, treatment, need for follow up Signature Scribe Signature: A Attestation: Scribed for Syd Sherman by CHARLEEN Mason . 08/02/25 14:49 SYD SHERMAN Aug 02, 2025 14:48
[2025-08-02] MEDS ORDERED: LIDO-52 TOP (14:49)
== END 2025-08-02 14:55 | disposition home or self-care (01) ==
LOC: ER 13:04
DX: S83.92XA Sprain of unspecified site of left knee, initial encounter (principal); M17.12 Unilateral primary osteoarthritis, left knee; I10 Essential (primary) hypertension; I48.91 Unspecified atrial fibrillation; Z88.5 Allergy status to narcotic agent; X58.XXXA Exposure to other specified factors, initial encounter; Y93.01 Activity, walking, marching and hiking; Y92.89 Other specified places as the place of occurrence of the external cause; Y99.8 Other external cause status
CPT/HCPCS: 73564; 99283; A6449